=== PATIENT | male | born 1945 | race Caucasian/White ===

== ENCOUNTER 2022-02-21 08:24 | Outpatient (CLI) | payer MEDICARE, OTHER ==
[2022-02-21 15:31] LABS: SARS-CoV-2 PCR by NAA Not Detected (NotDetected)
== END 2022-02-21 08:25 | disposition home or self-care (01) ==
LOC: CSHLAB 08:24
PROVIDERS: ATTEND Internal Medicine Gastroenterology
DX: Z20.822 Contact with and (suspected) exposure to COVID-19 (principal); K21.9 Gastro-esophageal reflux disease without esophagitis; K63.5 Polyp of colon
CPT/HCPCS: U0003; U0005

== ENCOUNTER 2022-02-26 09:03 | Day surgery (SDC) | payer MEDICARE, OTHER ==
[2022-02-22 13:46] VITALS: BMI 24.7
[2022-02-26] MEDS ORDERED: Lidocaine 1% MPF 2 ML VIAL ONE (10:26)
[2022-02-26] MEDS ORDERED: PROPOFOL 40 ML ONE (10:38)
[2022-02-26] MEDS ORDERED: Lidocaine 1% PF 5 ML VIAL ONE (10:39)
== END 2022-02-26 12:45 | disposition home or self-care (01) ==
LOC: CSHSDC 09:03
PROVIDERS: ATTEND Internal Medicine Gastroenterology
PROC: 0DB68ZZ Excision of Stomach, Via Natural or Artificial Opening Endoscopic (ICD-10-PCS; principal; 2022-02-26)
PROC: 0DJD8ZZ Inspection of Lower Intestinal Tract, Via Natural or Artificial Opening Endoscopic (ICD-10-PCS; 2022-02-26)
DX: Z12.11 Encounter for screening for malignant neoplasm of colon (principal); K31.7 Polyp of stomach and duodenum; K21.00 Gastro-esophageal reflux disease with esophagitis, without bleeding; K64.9 Unspecified hemorrhoids; K22.10 Ulcer of esophagus without bleeding; K25.9 Gastric ulcer, unspecified as acute or chronic, without hemorrhage or perforation; Z86.010 Personal history of colon polyps
CPT/HCPCS: 43239; G0105; 88305; 88312; 88313; J2704